=== PATIENT | male | born 1940 | race Caucasian/White ===

== ENCOUNTER 2021-10-19 16:45 | Emergency (ER) | payer MEDICARE, SELFPAY ==
--- NOTE | 2021-10-19 16:55 | ED.EYEPROB ---
HPI - Eye Problem General Chief complaint: Eye Problems Stated complaint: right eye Time Seen by Provider: 10/19/21 16:55 Source: patient and RN notes reviewed History of Present Illness HPI Narrative: Patient is an 81-year-old male who presents the urgent care with complaints of irritation to the right eye. Patient states that 4 days ago he got an eyelash in the eye and rubbed it consistently. Patient states that now it has caused him more irritation and intermittent pain. Patient denies of any vision changes. States that he clear drainage. Denies of any swelling. No other acute complaints. No acute distress noted. Patient aware of the plan of care. Some parts of this dictation were generated by voice recognition software and may contain typographical and/or grammatical inaccuracies. Related Data Home Medications Medication Instructions Recorded Confirmed fenofibrate nanocrystallized 145 mg PO DAILY 10/19/21 10/19/21 levothyroxine 112 mcg PO DAILY 10/19/21 10/19/21 lisinopril 5 mg PO DAILY 10/19/21 10/19/21 mirtazapine 7.5 mg PO HS 10/19/21 10/19/21 rosuvastatin 40 mg PO DAILY 10/19/21 10/19/21 spironolacton-hydrochlorothiaz 1 tablet PO DAILY 10/19/21 10/19/21 Allergies Allergy/AdvReac Type Severity Reaction Status Date / Time indomethacin Allergy Verified 05/10/12 19:12 CYCLOBENZAPRINE HCL Allergy Uncoded 05/10/12 19:12 INDOMETHACIN SODIUM Allergy Uncoded 05/10/12 19:12 TRIHYDRATE Review of Systems Review of Systems: CONSTITUTIONAL: Denies fever, chills, or sweats. EYES: Denies visual changes, redness, or discharge. ENT: Denies rhinorrhea, congestion, sore throat, or otalgia. CARDIOVASCULAR: Denies chest pain, palpitations, or edema. RESPIRATORY: Denies cough or dyspnea. GASTROINTESTINAL: Denies abdominal pain, nausea, vomiting, or diarrhea. GENITOURINARY: Denies dysuria or hematuria. SKIN: Denies rash or itching. MUSCULOSKELETAL: Denies back pain, joint pain, or myalgia. NEUROLOGIC: Denies headache, numbness, or weakness. All other systems reviewed are negative, except as documented in HPI. PMFSH Comments At the time of my signature, I reviewed and agree with the nursing past medical, surgical, social, and family history. There is no relevant family history pertinent to the patient complaint. Exam Narrative: GENERAL: This is a well-nourished, well-developed patient, in no apparent distress. HEAD: normocephalic, atraumatic. EYES: PERRL. Left sclera clear/white. Mild injected right conjunctivea with scant erythema to the sclera vision is grossly intact. EARS: External ears normal NOSE: External nose normal with no obvious nasal discharge, nares without redness, no rhinorrhea. THROAT: Mucous membranes moist NECK: Neck supple CARDIOVASCULAR: Regular rate and rhythm without murmurs, gallops, or rubs. RESPIRATORY: Clear to auscultation. Breath sounds equal bilaterally. No wheezes, rales, or rhonchi. SKIN: warm, intact with no suspicious lesions or rash, good texture and turgor. NEURO: awake, alert, and oriented to person, place and time. There were no obvious focal neurologic abnormalities. EXTREMITIES: No clubbing, cyanosis, or edema. Course Course Level of Care: Express Care Visit Vital Signs Vital signs: Vital Signs Temperature 97.7 F 10/19/21 16:59 Pulse Rate 67 10/19/21 16:59 Respiratory Rate 16 10/19/21 16:59 Blood Pressure 131/74 10/19/21 16:59 Pulse Oximetry 100 10/19/21 16:59 Temperature 97.7 F 10/19/21 16:59 Pulse Rate 67 10/19/21 16:59 Respiratory Rate 16 10/19/21 16:59 Blood Pressure 131/74 10/19/21 16:59 Pulse Oximetry 100 10/19/21 16:59 Reviewed Procedures Other Procedure Procedure 1: Other Procedure: Patient deferred fluorescein stain. Use 2 drops of tetracaine for numbing purposes. Patient tolerated well. No obvious foreign body seen with direct visualization. MDM - Eye Problem MDM Narrative Medical decision making narrativ
[2021-10-19 16:59] VITALS: BP 131/74; PULSE 67; RESP 16; TEMP 36.5; O2SAT 100
== END 2021-10-19 17:35 | disposition home or self-care (01) ==
PROVIDERS: Emergency Provider Nurse Practitioner Family; PCP Internal Medicine
DX: H57.89 Other specified disorders of eye and adnexa (principal); E78.00 Pure hypercholesterolemia, unspecified; K21.9 Gastro-esophageal reflux disease without esophagitis; E03.9 Hypothyroidism, unspecified
CPT/HCPCS: 99203; G0463